=== PATIENT | female | born 1965 | race Caucasian/White ===

== ENCOUNTER 2018-10-02 05:53 | Emergency (ER) | payer OTHER ==
[~2018-10-02] VITALS: Ht 167.6 cm; Wt 76.7 kg
[2018-10-02 05:56] VITALS: Ht 167.6 cm; Wt 76.7 kg
[2018-10-02 07:45] LABS: CARBON DIOXIDE 28.1 mmol/L (21-32); CHLORIDE SERUM 106 mmol/L (98-107); CREATININE SERUM 0.8 mg/dL (0.6-1.0); GFR1 > 60 mL/min; GLUCOSE SERUM 122 mg/dL (74-106); POTASSIUM SERUM 4.3 mmol/L (3.5-5.1); SODIUM SERUM 141 mmol/L (136-145)
[2018-10-02 07:50] LABS: ALBUMIN 3.5 g/dL (3.4-5.0); ALKALINE PHOSPHATASE 65 U/L (46-116); ALT/SGPT 18 U/L (14-59); AST/SGOT 18 U/L (15-37); BILIRUBIN TOTAL 0.38 mg/dL (0.20-1.00); TOTAL PROTEIN, SERUM 7.2 g/dL (6.4-8.2)
[2018-10-02 07:51] LABS: BASOPHIL % 0.4 % (0-2)
[2018-10-02 08:28] LABS: PLATELET COUNT 197 x10^3mcL (130-400)
[2018-10-02 09:27] VITALS: BP 122/71
== END 2018-10-02 09:27 | disposition home or self-care (01) ==
LOC: ED 05:53
PROVIDERS: Emergency Medicine
DX: R42 Dizziness and giddiness (principal); R53.83 Other fatigue; R11.2 Nausea with vomiting, unspecified; E78.00 Pure hypercholesterolemia, unspecified; K21.9 Gastro-esophageal reflux disease without esophagitis
CPT/HCPCS: J2405; J7030; Q0092